=== PATIENT | male | born 2000 | race American Indian/Alaskan Native ===

== ENCOUNTER 2020-09-10 02:56 | Emergency (ER) | payer OTHER ==
[2020-09-10 03:12] VITALS: BP 112/68
--- NOTE | 2020-09-10 05:29 | Emergency Department Report ---
ED ENT HPI - General Chief complaint: Earache Stated complaint: RIGHT EAR PAIN Time Seen by Provider: 09/10/20 05:21 Source: patient Mode of arrival: Ambulatory Limitations: No Limitations - History of Present Illness Initial comments: 20-year-old -[place] male presents to the emergency room complaining of right ear sore after placing a rubber band on top of his keloid and left earlobe after putting a rubber band on his keloid. Patient is taking nothing for pain. Patient denies any headache no nausea no vomiting no fever no chills. MD complaint: trauma/injury -: During the night Location: R ear, L ear Severity: moderate Severity scale (0 -10): 8 Quality: burning, stabbing, sharp Consistency: constant Improves with: none Worsens with: none Associated Symptoms: denies: fever - Related Data Previous Rx's Medication Instructions Recorded Last Taken Type cephALEXin [Keflex] 500 mg PO Q8HR 7 Days #21 cap 09/10/20 Unknown Rx Allergies Allergy/AdvReac Type Severity Reaction Status Date / Time No Known Allergies Allergy Unverified 09/10/20 03:05 ED Dental HPI - General Chief complaint: Earache Stated complaint: RIGHT EAR PAIN Time Seen by Provider: 09/10/20 05:21 Source: patient Mode of arrival: Ambulatory Limitations: No Limitations - Related Data Previous Rx's Medication Instructions Recorded Last Taken Type cephALEXin [Keflex] 500 mg PO Q8HR 7 Days #21 cap 09/10/20 Unknown Rx Allergies Allergy/AdvReac Type Severity Reaction Status Date / Time No Known Allergies Allergy Unverified 09/10/20 03:05 ED Review of Systems ROS: Stated complaint: RIGHT EAR PAIN Other details as noted in HPI Comment: All other systems reviewed and negative ED Past Medical Hx - Past Medical History Previous Medical History?: No - Social History Smoking Status: Never Smoker Substance Use Type: Marijuana - Medications Home Medications: Home Medications Medication Instructions Recorded Confirmed Last Taken Type cephALEXin [Keflex] 500 mg PO Q8HR 7 Days #21 cap 09/10/20 Unknown Rx ED Physical Exam - General Limitations: No Limitations General appearance: alert, in no apparent distress - Head Head exam: Present: atraumatic, normocephalic - Eye Eye exam: Present: normal appearance - ENT ENT exam: Present: other (Right article hematoma mild erythematous, left Pea hematoma tender to touch). Absent: normal external ear exam - Neck Neck exam: Present: normal inspection, full ROM - Respiratory Respiratory exam: Present: normal lung sounds bilaterally. Absent: respiratory distress, accessory muscle use - Cardiovascular Cardiovascular Exam: Present: regular rate - Back Exam Back exam: Present: normal inspection - Neurological Exam Neurological exam: Present: alert, oriented X3, normal gait - Psychiatric Psychiatric exam: Present: normal affect, normal mood - Skin Skin exam: Present: warm, dry, intact, normal color. Absent: rash ED Course Vital Signs 09/10/20 03:05 Temperature 98.0 F Pulse Rate 80 Respiratory 16 Rate Blood Pressure 112/68 O2 Sat by Pulse 96 Oximetry ED Medical Decision Making - Medical Decision Making 20-year-old -[place] male presents to the emergency room complaining of right ear sore after placing a rubber band on top of his keloid and left earlobe after putting a rubber band on his keloid. Patient is taking nothing for pain. Patient denies any headache no nausea no vomiting no fever no chills. We will place patient on Keflex for acute cellulitis of the right article of ear and left Pea. Patient is instructed to take Tylenol or ibuprofen as needed for pain. Patient is instructed not to put rubber bands on his keloid's. Critical care attestation.: If time is entered above; I have spent that time in minutes in the direct care of this critically ill patient, excluding procedure time. ED Disposition Clinical Impression: Skin of both earlobes with infection Disposition: DC-01 TO HOME OR SELFCARE Is pt being admited?: No Does the pt Need Aspirin: No Condition: Stable Additional Instructions: Complete antibiotics as prescribed. Take [id number] Tylenol or ibuprofen. Do not put rubber bands on your keloids and follow-up with a plastic surgeon. Prescriptions: cephALEXin [Keflex] 500 mg PO Q8HR 7 Days #21 cap Referrals: PRIMARY CARE, [Primary Care Provider] - 3-5 Days NGUYEN GERBER MD [Staff Physician] - 3-5 Days NORMA MENA MD [Staff Physician] - 3-5 Days MARISOL HERNANDEZ MD [Staff Physician] - 3-5 Days Forms: Work/School Release Form(ED)
== END 2020-09-10 05:40 | disposition home or self-care (01) ==
LOC: ED 02:56
DX: H60.10 Cellulitis of external ear, unspecified ear (principal); F12.10 Cannabis abuse, uncomplicated; Z79.899 Other long term (current) drug therapy
CPT/HCPCS: 99282